=== PATIENT | male | born 1965 | race Hispanic/Latino ===

== ENCOUNTER 2024-02-24 08:22 | Day surgery (SDC) | payer OTHER ==
[~2024-02-24] VITALS: Ht 167.6 cm; Wt 71.7 kg
[~2024-02-24 08:22] MED LIST: NAPROXEN250 MG PO; TRAMADOL HYDROC50 M1 PO
[2024-02-24] MEDS ORDERED: LACTATED RINGER'S 1,000 ML IV ONE (09:12)
[2024-02-24] MEDS ORDERED: FAMOTIDINE 10MG/ML 2ML SDV IV ONE (09:12)
[2024-02-24 13:22] VITALS: BP 95/60
[2024-02-24] MEDS ORDERED: GLYCOPYRROLATE 0.2 MG/ML IV ONE (16:19)
[2024-02-24] MEDS ORDERED: PROPOFOL 500 MG/50 ML VIAL IV ONE (16:19)
[2024-02-24] MEDS ORDERED: LIDOCAINE HCL 2% 2ML SDV IV ONE (16:19)
== END 2024-02-24 11:53 | disposition home or self-care (01) ==
LOC: ORM 08:22
PROVIDERS: ATTEND Internal Medicine Gastroenterology
DX: Z12.11 Encounter for screening for malignant neoplasm of colon (principal); K64.8 Other hemorrhoids; Z86.010 Personal history of colon polyps; Z80.0 Family history of malignant neoplasm of digestive organs